=== PATIENT | female | born 1970 | race Caucasian/White ===

== ENCOUNTER → 2016-10-03 | Outpatient (CLI) | payer BC ==
[~2016-10-03] MED LIST: ALBU8.5H2 IH; BUDE6HFA IH; CALTRATE 600 +1 EACH PO; CEFD300C3 PO; EST45C VG; MULT1TAB86 PO; NAPR-243 PO; OMEG1CAP51 PO; PRED10TA PO
--- NOTE | 2016-10-04 19:27 | Diagnostic Imaging Report ---
Bilateral screening mammogram The current study was also evaluated with a Computer Aided Detection (CAD) system. Indication: Screening. No current complaints stated on the questionnaire. COMPARISON: 10/13/15. FINDINGS: The breasts are composed of heterogeneously dense parenchyma which may decrease mammographic sensitivity. There is no mass, architectural distortion or suspicious cluster of calcification. There is a biopsy clip in the upper central aspect of the left breast. Allowing for technique and positional differences, no suspicious change is seen. IMPRESSION: Dense breasts with no definite change. ACR BI-RADS Category 2: Benign findings. Result letter will be mailed to the patient. Note: At least 10% of breast cancer is not imaged by mammography. Dictated by: Dictated on workstation # [id number]
== END ==
LOC: RAD 10:47
PROVIDERS: ATTEND Nurse Practitioner
DX: Z12.31 Encounter for screening mammogram for malignant neoplasm of breast (principal)

== ENCOUNTER → 2017-08-16 | Outpatient (CLI) | payer BC ==
--- NOTE | 2017-08-16 21:34 | Diagnostic Imaging Report ---
PROCEDURE: US abdomen complete. TECHNIQUE: Multiple real-time grayscale images were obtained over the abdomen in various projections. INDICATION: Hepatitis B. FINDINGS: The visualized portions of the pancreas appear unremarkable. The liver is fairly homogeneous with no focal lesion seen. There is hepatopetal flow in the portal vein. The CBD is 4 mm in caliber. The gallbladder demonstrates no stones or wall thickening. No pericholecystic fluid. Sonographic Teran's sign is reportedly negative. The left kidney is 10.4 cm and the right kidney is 10.5 cm in length. No hydronephrosis or focal lesion. The spleen is 10.5 cm in length, normal. The abdominal aorta and IVC visualized portions appear unremarkable. No fluid collection or ascites identified. IMPRESSION: Unremarkable exam. Dictated by: Dictated on workstation # [id number]
== END ==
LOC: RAD 08:24
PROVIDERS: ATTEND Internal Medicine Gastroenterology
DX: B18.1 Chronic viral hepatitis B without delta-agent (principal)
CPT/HCPCS: 76700

== ENCOUNTER → 2017-10-04 | Outpatient (CLI) | payer BC ==
--- NOTE | 2017-10-04 18:29 | Diagnostic Imaging Report ---
INDICATION: Screening. At this time there are no current complaints. EXAMINATION: Bilateral digital screening mammogram with CAD. COMPARISON: This study was compared to the prior exams of 10/03/2016, 10/13/2015 and 10/02/14. FINDINGS: The fibroglandular tissue in both breasts is dense. This does limit the sensitivity of this exam. Overall, there does not appear to have been any significant change when compared to the prior study. No primary or secondary sign of malignancy is noted. The stereotactic clip in the left breast, seen previously, is again evident. IMPRESSION: There is no radiographic evidence for malignancy. ACR BI-RADS Category 1: Negative. Result letter will be mailed to the patient. Note: At least 10% of breast cancer is not imaged by mammography. Dictated by: Dictated on workstation # [id number]
== END ==
LOC: RAD 07:42
PROVIDERS: ATTEND Family Medicine
DX: Z12.31 Encounter for screening mammogram for malignant neoplasm of breast (principal)
CPT/HCPCS: 77067

== ENCOUNTER → 2019-10-06 | Outpatient (CLI) | payer BC ==
--- NOTE | 2019-10-07 13:10 | Diagnostic Imaging Report ---
INDICATION: Routine screening. COMPARISON: 10/04/2018 and 10/04/2017. TECHNIQUE: 2D and 3D bilateral screening mammography was performed with CAD. FINDINGS: Both breasts remain heterogeneously dense, limiting the sensitivity of mammography. A stereotactic clip in the left breast is again noted. The overall parenchymal pattern appears stable. No mass or malignant appearing microcalcifications are seen. The axillae are unremarkable. IMPRESSION: No mammographic features suspicious for malignancy are identified. ACR BI-RADS Category 2: Benign findings. Result letter will be mailed to the patient. Note: At least 10% of breast cancer is not imaged by mammography. Dictated by: Dictated on workstation # [id number]
== END ==
LOC: RAD 15:30
PROVIDERS: ATTEND Family Medicine
DX: Z12.31 Encounter for screening mammogram for malignant neoplasm of breast (principal)
CPT/HCPCS: 77067

== ENCOUNTER → 2020-10-08 | Outpatient (CLI) | payer BC ==
--- NOTE | 2020-10-11 16:44 | Diagnostic Imaging Report ---
EXAMINATION: Digital mammogram bilateral screening with CAD. INDICATION: Screening. COMPARISON: This study was compared to the prior exams of 10/06/2019, 10/04/2018, 10/04/2017, and 10/03/2016. PERSONAL HISTORY: At this time, there are no current complaints. FINDINGS: The fibroglandular tissue in both breasts is dense. This does limit the sensitivity of this exam. The stereotactic clip in the left breast seen previously is again evident. Overall, there does not appear to have been any significant change when compared to the prior study. No primary or secondary sign of malignancy is noted. IMPRESSION: There is no radiographic evidence for malignancy. ACR BI-RADS Category 1: Negative. Result letter will be mailed to the patient. Note: At least 10% of breast cancer is not imaged by mammography. Dictated by: Dictated on workstation # [id number]
== END ==
LOC: RAD 11:31
PROVIDERS: ATTEND Family Medicine
DX: Z12.31 Encounter for screening mammogram for malignant neoplasm of breast (principal)
CPT/HCPCS: 77063; 77067

== ENCOUNTER → 2021-10-11 | Outpatient (CLI) | payer BC ==
--- NOTE | 2021-10-11 16:59 | Diagnostic Imaging Report ---
INDICATION: Routine screening. COMPARISON: 10/08/2020 and 10/06/2019. TECHNIQUE: 2D and 3D bilateral screening mammography was performed with CAD. FINDINGS: Both breasts are heterogeneously dense, limiting the sensitivity of mammography. A marker clip in the left breast is again noted. No mass or malignant-appearing microcalcifications are seen. The axillae are unremarkable. IMPRESSION: No mammographic features suspicious for malignancy are identified. ACR BI-RADS Category 2: Benign findings. Result letter will be mailed to the patient. Note: At least 10% of breast cancer is not imaged by mammography. Dictated by: Dictated on workstation # [id number]
== END ==
LOC: RAD 15:15
PROVIDERS: ATTEND Family Medicine
DX: Z12.31 Encounter for screening mammogram for malignant neoplasm of breast (principal)
CPT/HCPCS: 77063; 77067

== ENCOUNTER → 2022-05-08 | Outpatient (CLI) | payer BC ==
--- NOTE | 2022-05-08 18:07 | Diagnostic Imaging Report ---
INDICATION: Left condylar hyperplasia. FINDINGS: The mandibular condyles are not well delineated on this single view. The mastoids appear aerated. There is no air-fluid level present within the paranasal sinuses. The orbits are poorly evaluated. There is no suspicious calvarial lesion. IMPRESSION: 1. Mandibular condyles are not well delineated on this single view. Further assessment could be considered with CT of the face. Dictated by: Dictated on workstation # [id number]
== END ==
LOC: RAD 15:25
PROVIDERS: ATTEND Specialist
DX: M27.8 Other specified diseases of jaws (principal)
CPT/HCPCS: 70250

== ENCOUNTER → 2022-05-09 | Outpatient (CLI) | payer BC ==
--- NOTE | 2022-05-09 17:11 | Diagnostic Imaging Report ---
BONE SPECT INDICATION: Mandibular condyle hyperplasia. COMPARISON: None available. TECHNIQUE: Infused SPECT-CT scintigraphic imaging of the head and neck was performed after the intravenous initiation 26.2 mCi of technetium 99 MDP FINDINGS: On the localizing CT images, the bilateral mandibular condyles appear symmetrically elongated. There is no asymmetric radiotracer uptake in either of the mandibular condyles to suggest active unilateral growth. There are few scattered sites of radiotracer uptake in the cervical spine that are degenerative in nature. No concerning sites of radiotracer activity within the head and neck. IMPRESSION: No asymmetric radiotracer uptake in the mandibular condyles to suggest active unilateral condyle growth. Dictated by: Dictated on workstation # [id number]
== END ==
LOC: CARD 07:52
PROVIDERS: ATTEND Specialist
DX: M27.8 Other specified diseases of jaws (principal)
CPT/HCPCS: 78803; A9503

== ENCOUNTER 2022-09-08 05:40 | Outpatient (CLI) | payer BC ==
[~2022-09-08] VITALS: Ht 172.7 cm; Wt 60.5 kg
== END 2022-09-08 15:38 | disposition home or self-care (01) ==
LOC: PREOP 05:40
PROVIDERS: ATTEND Internal Medicine
DX: Z01.818 Encounter for other preprocedural examination (principal)

== ENCOUNTER 2022-09-15 08:26 | Day surgery (SDC) | payer BC ==
--- NOTE | 2022-09-07 05:48 | HISTORY AND PHYSICAL ---
COLONOSCOPY HISTORY AND PHYSICAL DATE OF ADMISSION: 09/15/2022 HISTORY OF PRESENT ILLNESS: The patient is a 51-year-old white female referred by Dr. Nair for surveillance colonoscopy due to past history of colon polyps and a family history for colon cancer. Her father has had colon polyps removed and a grandfather had colon cancer, she is not sure at what age. She last underwent colonoscopy per Dr. Rosario in 2016, who had recommended a 5-year surveillance interval. At that time, she reports 2 to 3 polyps were removed. She denied having any difficulty with the procedure more with the prep prior. She denies abdominal pain, change in bowel habits, melena, bright red blood per rectum or indigestion. PAST MEDICAL HISTORY: Noncontributory. MEDICATIONS: She takes no medication. ALLERGIES: No known drug allergies. SOCIAL HISTORY: She teaches at [employer], current occasional small volume alcohol consumption and no past history of tobacco use. PAST SURGICAL HISTORY: She has had varicose vein stripping, has had sinus surgery, foot surgery, and LASIK surgery on the eyes. FAMILY HISTORY: As noted in the HPI. REVIEW OF SYSTEMS: CONSTITUTIONAL: Denies night sweats, chills, fever, change in weight. GASTROINTESTINAL: As noted in the HPI. PULMONARY: Denies cough, wheezing or shortness of breath. CARDIOVASCULAR: Denies chest pain, syncope, orthopnea, PND, pedal edema or dyspnea on exertion. PHYSICAL EXAMINATION: GENERAL: Reveals a fit appearing white female in no acute distress. VITAL SIGNS: Weight is 133 pounds. Blood pressure 116/74, heart rate 56 and regular. HEENT: Unremarkable. Sclerae nonicteric. CHEST: Clear to auscultation. CARDIOVASCULAR: Reveals a regular rate and rhythm without murmur, S3 or S4. ABDOMEN: Soft, supple without mass, organomegaly or tenderness. EXTREMITIES: No cyanosis, clubbing or edema. ASSESSMENT AND PLAN: The patient is being set up for surveillance colonoscopy due to past history of colon polyps and family history for colon cancer. See HPI. Prep instructions were given and questions were answered. I thank you for the referral of this pleasant lady. Job ID: [id number] DocumentID: [id number] Dictated Date: 09/04/2022 17:49:15 [employer] Team Lead Date: 09/04/2022 18:12:00 Dictated By: NATALIE MARTEL MD
[2022-09-15] VITALS (7 sets, daily range): BP systolic 73–122; BP diastolic 44–80
[~2022-09-15] VITALS: Ht 172.2 cm; Wt 60.5 kg
[2022-09-15] MEDS ORDERED: LACTATED RINGERS 1,000 ML IV STA (08:29)
[2022-09-15] MEDS ORDERED: LACTATED RINGERS 1,000 ML IV ONE (08:31)
--- NOTE | 2022-09-15 09:03 | Pre-Op Note & Conscious Sedat ---
Pre-Operative Progress Note Date H&P Reviewed: Sep 15, 2022 Time H&P Reviewed: 09:02 History & Physical: H&P Reviewed, Patient Examed, No changes noted Pre-Op Diagnosis: colon polyps with family history for colon cancer Conscious Sedation Pre-Proced ASA Score 1 For ASA 3 and 4: Consider anesthesia and medical clearance. Also, for patients with a history of failed moderate sedation consider anesthesia. Airway Lungs Heart ASA score ASA 1: a normal healthy patient ASA 2: a patient with a mild systemic disease (mid diabetes, controlled hypertension, obesity ASA 3: a patient with a severe systemic disease that limits activity (angina, COPD, prior Myocardial infarction) ASA 4: a patient with an incapacitating disease that is a constant threat to life (CHF, renal failure) ASA 5: a moribund patient not expected to survive 24 hrs. (ruptured aneurysm) ASA 6: a declared brain- patient whose organs are being harvested. For emergent operations, add the letter E after the classification Mallampati Classification Grade 2 Sedation Plan Analgesia, Amnesia, Plan communicated to team members, Discussed options with patient/fam, Discussed risks with patient/fam The patient is an appropriate candidate to undergo the planned procedure, sedation, and anesthesia. The patient immediately re-assessed prior to indication. NATALIE MARTEL MD Sep 15, 2022 09:03
[2022-09-15] MEDS ORDERED: PROPOFOL INJECTION 50 ML IV ONE (10:02)
--- NOTE | 2022-09-15 10:38 | Progress Note-Post Operative ---
Post-Procedure Note Physician (s)/Knife Grinder (s) Physician NATALIE MARTEL MD Pre-Procedure Diagnosis Pre-Procedure Diagnosis: colon polyps with family history for colon cancer Post-Procedure Diagnosis Post-operative diagnosis: Prior to undergoing colonoscopy digital rectal evaluation was performed. Anal suture tone was normal and the perianal reflexes intact. No abnormalities noted on digital inspection of the anal canal or distal rectal vault. The colonoscope was then inserted into the rectum and under direct visualization advanced to the cecum. The cecum was identified by identification of the ileocecal valve and the cecal strap. Photographic documentation was obtained. A careful inspection was made as the colonoscope was withdrawn. Quality the prep was good. Findings: There was no evidence for internal or external hemorrhoids. The rectum sigmoid colon descending colon splenic flexure transverse colon hepatic flexure ascending colon and cecum were unremarkable under good prep conditions. Assessment normal colonoscopy to the cecum. Would advocate increasing screening interval to 5 years considering family history. CC: NATALIE Hernandez MD Sep 15, 2022 10:38
--- NOTE | 2022-09-15 14:11 | Anesthesia-General Post-Op ---
MAC Patient Condition Mental Status/LOC: Same as Preop Cardiovascular: Satisfactory Nausea/Vomiting: Absent Respiratory: Satisfactory Pain: Controlled Complications: Absent Post Op Complications Complications None Follow Up Care/Instructions Patient Instructions None needed. Anesthesiology Discharge Order Discharge Order Patient is doing well, no complaints, stable vital signs, no apparent adverse anesthesia problems. No complications reported per nursing. ROSALES CASE CRNA Sep 15, 2022 14:11
== END 2022-09-15 11:45 | disposition home or self-care (01) ==
LOC: ENDO 08:26
PROVIDERS: ATTEND Internal Medicine
DX: Z12.11 Encounter for screening for malignant neoplasm of colon (principal); Z86.010 Personal history of colon polyps; Z28.310 Unvaccinated for COVID-19

== ENCOUNTER → 2022-10-03 | Outpatient (CLI) | payer BC ==
--- NOTE | 2022-10-04 10:25 | Diagnostic Imaging Report ---
Indication: Routine screening. Comparison is made with prior mammogram 10/11/2021 and 10/08/2020. 2-D and 3-D bilateral screening mammography was performed with CAD. Both breasts were heterogeneously dense, limiting the sensitivity of mammography. Marker clip in the upper left breast is again noted. No mass or malignant-appearing microcalcifications are seen. Axillae are unremarkable. IMPRESSION: BI-RADS Category 2 No mammographic features suspicious for malignancy are identified. ACR BI-RADS Category 2: Benign findings. Result letter will be mailed to the patient. Note: At least 10% of breast cancer is not imaged by mammography. Dictated by: Dictated on workstation # [id number]
== END ==
LOC: RAD 11:19
PROVIDERS: ATTEND Family Medicine
DX: Z12.31 Encounter for screening mammogram for malignant neoplasm of breast (principal)
CPT/HCPCS: 77063; 77067